=== PATIENT | male | born 1990 | race Caucasian/White ===

== ENCOUNTER 2022-10-26 15:34 | Emergency (ER) | payer SELFPAY ==
[~2022-10-26] VITALS: Ht 176 cm; Wt 145.0 kg
[2022-10-26] MEDS ORDERED: morphine INJ 10 MG/ML 1ML (SYR OR VIAL) IV STA (15:48)
[2022-10-26] MEDS ORDERED: NS IV 1000 ML 1,000 ML IV STA (15:52)
--- NOTE | 2022-10-26 15:52 | ED Chest Pain ---
General Chief Complaint: Chest Pain Stated Complaint: CHEST PAIN Nursing Triage Note: PT STATES CHEST PAIN THAT STARTED IN THE LAST 20-30 MIN, HX OF PE WITHIN 6 MONTHS AGO, NOT TAKING ANY MEDS AT THIS TIME Source: patient Exam Limitations: no limitations (ALEC CRAIN) History of Present Illness Date Seen by Provider: Oct 26, 2022 Time Seen by Provider: 15:49 Initial Comments Patient is a 32-year-old male who presents the ED with upper abdominal pain/chest pain. This started 20-30 minutes ago while laying down at the [employer]. Currently homeless. Pain is described as sharp and dull and constant. Rates pain 7 out of 10. Denies of any shortness of breath or cough. Patient reports a history of GERD. Denies taking medication. History of PE 6 months ago was on blood thinners but stopped taking the medication as he forgot it at a house that he was staying at. Denies any leg swelling or leg pain. No known cardiac history such as history of coronary artery disease, CHF. Denies history of diabetes, hypertension, high cholesterol. Denies smoking, drug use or alcohol use. Denies taking thing for pain. Denies headache, dizziness, sore throat, runny nose, ear pain, nausea, vomit, diarrhea. Denies history of previous abdominal surgery (ALEC CRAIN) Allergies and Home Medications Allergies Coded Allergies: No Known Drug Allergies (Unverified , 10/26/22) Patient Home Medication List Home Medication List Reviewed: Yes (ALEC CRAIN) Review of Systems Review of Systems Constitutional: No chills, No diaphoresis, No fever, No malaise EENTM: No Blurred Vision, No Double Vision Respiratory: Denies Cough, Denies Shortness of Air Cardiovascular: Chest Pain Gastrointestinal: Abdominal Pain; Denies Diarrhea, Denies Nausea, Denies Vomiting Genitourinary: Denies Burning, Denies Discharge Musculoskeletal: No back pain, No joint pain Skin: No change in color, No change in hair/nails (ALEC CRAIN) All Other Systems Reviewed Negative Unless Noted: Yes (ALEC CRAIN) Past Kksgxjy-Mcmbxd-Wkonbq Hx Patient Social History Tobacco Use?: No Substance use?: No Alcohol Use?: No (ALEC CRAIN) Past Medical History Surgery/Hospitalization HX: PE, HYPOGLYCEMIA (ALEC CRAIN) Physical Exam Vital Signs Vital Signs - First Documented 10/26/22 15:38 Temp 36.0 Pulse 89 Resp 20 B/P (MAP) 142/90 (107) Pulse Ox 98 O2 Delivery Room Air (CELSO HERNANDEZ MD) Vital Signs Capillary Refill : Less Than 3 Seconds (ALEC RCAIN) Height, Weight, BMI Height: '" Weight: lbs. oz. kg; 46.00 BMI Method: General Appearance: No Apparent Distress, WD/WN HEENT: PERRL/EOMI, TMs Normal, Normal ENT Inspection, Pharynx Normal Neck: Full Range of Motion, Normal Inspection, Non Tender, Supple Respiratory: Chest Non Tender, Lungs Clear, Normal Breath Sounds, No Accessory Muscle Use, No Respiratory Distress Cardiovascular: Regular Rate, Rhythm, No Edema, No Gallop, No JVD, No Murmur Gastrointestinal: Normal Bowel Sounds, No Organomegaly, No Pulsatile Mass, Soft, Tenderness (Epigastric tenderness on palpation) Extremity: Normal Capillary Refill, Normal Inspection, Normal Range of Motion, Non Tender Neurologic/Psychiatric: Alert, Oriented x3, No Motor/Sensory Deficits, Normal Mood/Affect, analytics lead II-XII Norm as Tested Skin: Normal Color, Warm/Dry (ALEC CRAIN) Progress/Results/Core Measures Results/Orders Lab Results Laboratory Tests Test 10/26/22 15:42 Range/Units White Blood Count 13.9 H 4.3-11.0 10^3/uL Red Blood Count 5.08 4.30-5.52 10^6/uL Hemoglobin 14.4 13.3-17.7 g/dL Hematocrit 44 40-54 % Mean Corpuscular Volume 87 80-99 fL Mean Corpuscular Hemoglobin 28 25-34 pg Mean Corpuscular Hemoglobin Concent 33 32-36 g/dL Red Cell Distribution Width 14.2 10.0-14.5 % Platelet Count 266 130-400 10^3/uL Mean Platelet Volume 10.3 9.0-12.2 fL Immature Granulocyte % (Auto) 0 % Neutrophils (%) (Auto) 62 42-75 % Lymphocytes (%) (Auto) 27 12-44 % Monocytes (%) (Auto) 9 0-12 % Eosinophils (%) (Auto) 2 0-10 % Basophils (%) (Auto) 0 0-10 % Neutrophils # (Auto) 8.7 H 1.8-7.8 X 10^3 Lymphocytes # (Auto) 3.7 1.0-4.0 X 10^3 Monocytes # (Auto) 1.2 H 0.0-1.0 X 10^3 Eosinophils # (Auto) 0.3 0.0-0.3 10^3/uL Basophils # (Auto) 0.0 0.0-0.1 10^3/uL Immature Granulocyte # (Auto) 0.0 0.0-0.1 10^3/uL Prothrombin Time 12.5 12.2-14.7 SEC INR Comment 0.9 0.8-1.4 Activated Partial Thromboplast Time 27 24-35 SEC D-Dimer 0.71 H 0.00-0.49 UG/ML Sodium Level 139 135-145 MMOL/L Potassium Level 4.1 3.6-5.0 MMOL/L Chloride Level 105 98-107 MMOL/L Carbon Dioxide Level 26 21-32 MMOL/L Anion Gap 8 5-14 MMOL/L Blood Urea Nitrogen 10 7-18 MG/DL Creatinine 0.81 0.60-1.30 MG/DL Estimat Glomerular Filtration Rate 119 BUN/Creatinine Ratio 12 Glucose Level 96 70-105 MG/DL Calcium Level 9.5 8.5-10.1 MG/DL Corrected Calcium 9.6 8.5-10.1 MG/DL Magnesium Level 2.2 1.6-2.4 MG/DL Total Bilirubin 0.7 0.1-1.0 MG/DL Aspartate Amino Transf (AST/SGOT) 30 5-34 U/L Alanine Aminotransferase (ALT/SGPT) 39 0-55 U/L Alkaline Phosphatase 74 40-136 U/L Myoglobin 39.7 10.0-92.0 NG/ML Troponin I < 0.028 <0.028 NG/ML B-Type Natriuretic Peptide < 10.0 <100.0 PG/ML Total Protein 7.8 6.4-8.2 GM/DL Albumin 3.9 3.2-4.5 GM/DL Lipase 20 8-78 U/L (CELSO HERNANDEZ MD) Medications Given in ED Current Medications Medications Dose Ordered Sig/Jose Route Start Time Stop Time Status Last Admin Dose Admin Iohexol 100 ml ONCE ONCE IV 10/26/22 17:00 10/26/22 17:01 DC 10/26/22 17:10 88 ML Sodium Chloride 100 ml ONCE ONCE IV 10/26/22 17:00 10/26/22 17:01 DC 10/26/22 17:10 80 ML (CELSO HERNANDEZ MD) Vital Signs/I&O 10/26/22 10/26/22 10/26/22 15:38 15:57 17:53 Temp 36.0 36.0 36.0 Pulse 89 76 Resp 20 20 B/P (MAP) 142/90 (107) 116/64 Pulse Ox 98 98 O2 Delivery Room Air Room Air (CELSO HERNANDEZ MD) Blood Pressure Mean: 107 Comment Sinus rhythm, moderate voltage criteria for LVH, borderline EKG, 87 bpm, QRS duration 89 MS, QTc 410 MS (ALEC CRAIN) Departure Communication (PCP) Reviewed previous ER visits, H&P, lab testing. History of PE 6 months ago. Was placed on a anticoagulant but stopped taking secondary to not able to get his medication. Patient states he was at the [facility] at the time. Woke up with pain in his upper abdomen. No associated shortness of breath, cough. Pain appears to be more in his upper abdomen. No previous abdominal surgery. Does have tenderness to the epigastric. Patient received a dose of morphine 4mg. No right lower quadrant or right upper quadrant tenderness. Pain does radiate up in the chest. Refused a GI cocktail. patient vital signs stable on arrival. Differential diagnosis gastritis, GERD, pancreatitis, ACS, PE. EKG was ordered which showed sinus rhythm with moderate voltage criteria for LVH. [address] elevation or depression. Patient is not hypoxic or tachycardic. Due to his history of PE D-dimer was ordered. CBC showed a white blood count of 13.9 nonspecific but lab work otherwise grossly unremarkable. Chemistry grossly unremarkable. Denies any drug use or alcohol use. Normal troponin and BNP. Elevated D-dimer 0.71. CT angio of the chest did not note any PE, pleural effusion, pneumothorax or pneumonia. Patient's pain completely resolved. He does report some history of indigestion but he was not eating at the time the pain started. No history of COPD, asthma. Lipase normal. Does not appear in acute distress. Soft abdomen throughout after reassessment. Pain completely resolved. Patient heart score 2 secondary to the LVH and risk factors hypertension, obesity. Denies high cholesterol, diabetes, smoking. Low risk for cardiac event within the next 30 days. Does not necessarily appear to be cardiac due to location of pain. other etiologies would be biliary colic, gastritis, GERD, esophagitis however patient was not eating at the time. Since patient is asymptomatic with normal liver enzymes no further imaging was performed at this time as he has no specific tenderness. Avoid fatty foods and spicy foods if related to gerd. . Discussed starting a PPI. Recommend follow- up with your PCP in 2 to 3 days for reevaluation. If increasing pain to return back to ED. provided general surgery outpatient follow-up. (ALEC CRAIN) Impression Primary Impression: Chest pain Additional Impression: Upper abdominal pain Disposition: HOME, SELF-CARE Condition: Stable Departure-Patient Inst. Decision time for Depature: 17:43 (ALEC CRAIN) Referrals: NO,LOCAL PHYSICIAN (PCP) Primary Care Physician [facility] DO Patient Instructions: Abdominal pain Add. Discharge Instructions: Recommend Pepcid. General surgery outpatient follow-up. Recommend follow-up with primary care physician 2 to 3 days for reevaluation All discharge instructions reviewed with patient and/or family. Voiced understanding. ATTENDING PHYSICIAN NOTE: I was physically present as attending physician in the emergency department during the care of this patient, but I was not directly involved in the decision making or delivery of care for this patient. (CELSO HERNANDEZ MD) ALEC CRAIN Oct 26, 2022 15:52 CELSO HERNANDEZ MD Oct 27, 2022 00:40
[2022-10-26 15:58] LABS: BASOPHILS % (AUTO) 0 % (0-10); EOSINOPHILS # (AUTO) 0.3 10^3/uL (0.0-0.3); EOSINOPHILS % (AUTO) 2 % (0-10); HEMATOCRIT 44 % (40-54); HEMOGLOBIN 14.4 g/dL (13.3-17.7); LYMPHOCYTES # (AUTO) 3.7 X 10^3 (1.0-4.0); LYMPHOCYTES % (AUTO) 27 % (12-44); MEAN CORPUSCULAR HEMOGLOBIN 28 pg (25-34); MEAN CORPUSCULAR HGB CONC 33 g/dL (32-36); MEAN CORPUSCULAR VOLUME 87 fL (80-99); MEAN PLATELET VOLUME 10.3 fL (9.0-12.2); MONOCYTES # (AUTO) 1.2 X 10^3 (0.0-1.0); MONOCYTES % (AUTO) 9 % (0-12); NEUTROPHILS # (AUTO) 8.7 X 10^3 (1.8-7.8); NEUTROPHILS % (AUTO) 62 % (42-75); PLATELET COUNT 266 10^3/uL (130-400); WHITE BLOOD COUNT 13.9 10^3/uL (4.3-11.0)
--- NOTE | 2022-10-26 16:04 | Diagnostic Imaging Report ---
INDICATION: Chest pain The lungs are clear. No failure, effusion or pneumothorax. IMPRESSION: No acute appearing abnormality. Dictated by: Dictated on workstation # [id number]
[2022-10-26 16:07] LABS: ALBUMIN 3.9 GM/DL (3.2-4.5)
[2022-10-26 16:08] LABS: CHLORIDE 105 MMOL/L (98-107); POTASSIUM 4.1 MMOL/L (3.6-5.0); SODIUM 139 MMOL/L (135-145)
[2022-10-26 16:09] LABS: CALCIUM 9.5 MG/DL (8.5-10.1)
[2022-10-26 16:10] LABS: GLUCOSE 96 MG/DL (70-105); TOTAL PROTEIN 7.8 GM/DL (6.4-8.2)
[2022-10-26 16:11] LABS: CARBON DIOXIDE 26 MMOL/L (21-32); INR 0.9 (0.8-1.4); PROTHROMBIN TIME PATIENT 12.5 SEC (12.2-14.7)
[2022-10-26 16:12] LABS: BILIRUBIN,TOTAL 0.7 MG/DL (0.1-1.0)
[2022-10-26 16:13] LABS: ALKALINE PHOSPHATASE 74 U/L (40-136)
[2022-10-26 16:14] LABS: CREATININE SERUM 0.81 MG/DL (0.60-1.30); GFR ESTIMATED 119
[2022-10-26 16:15] LABS: BUN/CREATININE RATIO 12
[2022-10-26 16:17] LABS: ALANINE AMINOTRANSFERASE 39 U/L (0-55); FIBRIN DEGRADATION PRODUCTS 0.71 UG/ML (0.00-0.49); MAGNESIUM 2.2 MG/DL (1.6-2.4)
[2022-10-26 16:18] LABS: LIPASE 20 U/L (8-78)
[2022-10-26] MEDS ORDERED: HOLD METFORMIN - RECEIVED CONTRAST 20 ML VIAL IV SCH (17:00)
[2022-10-26] MEDS ORDERED: NS 100 ML (IVPB) BAG IV ONE (17:00)
[2022-10-26] MEDS ORDERED: IOHEXOL 350 MG/ML 100 ML (OMNIPAQUE 350) VIAL IV ONE (17:00)
--- NOTE | 2022-10-26 17:24 | Diagnostic Imaging Report ---
EXAMINATION: CT angiography of the chest. TECHNIQUE: Contrast enhanced thin section helical images were obtained through the chest with intravenous contrast timed for the optimal opacification of the arterial structures per CTA protocol. Post-processing, reconstructions and interpretation of angiographic images of the vessels was performed. 3D MIP reconstructions were performed and reviewed. All CT scans use one or more of the following dose optimizing techniques: automated exposure control, MA and/or KvP adjustment based on a patient size and exam type, or iterative reconstruction. HISTORY: chest pain, sob COMPARISON: 08/30/2022 FINDINGS: Vascular: There are no filling defects within the pulmonary arteries. The thoracic aorta is normal in caliber. Thyroid: The thyroid is normal. Mediastinum: Heart size is normal without significant pericardial effusion. No suspicious lymphadenopathy. Lungs and airways: The lungs are clear without consolidation, pleural effusion, or pneumothorax. The airways are normal. Upper abdomen: The subphrenic structures are normal. Musculoskeletal: No suspicious osseous lesion or compression fracture. IMPRESSION: 1. No findings of pulmonary embolus or other acute abnormality in the chest. Dictated by: Dictated on workstation # [id number]
[2022-10-26 17:53] VITALS: BP 116/64
== END 2022-10-26 17:53 | disposition home or self-care (01) ==
LOC: ER 15:35
DX: R07.9 Chest pain, unspecified (principal); R10.10 Upper abdominal pain, unspecified; R10.13 Epigastric pain; R79.89 Other specified abnormal findings of blood chemistry; Z87.19 Personal history of other diseases of the digestive system
CPT/HCPCS: 36415; 71045; 71275; 80053; 83690; 83735; 83874; 83880; 84484; 85025; 85379; 85610; 85730; 93005; 93041